=== PATIENT | male | born 2000 | race Caucasian/White ===

== ENCOUNTER 2021-10-25 17:16 | Emergency (ER) | payer SELFPAY ==
[2021-10-25 17:22] VITALS: BP 156/109; PULSE 111; RESP 24; TEMP 38.3; O2SAT 98
--- NOTE | 2021-10-25 18:03 | ED_ITS ---
HPI - Abdominal Pain General: Chief Complaint: Abdominal Pain Stated Complaint: n/v Time Seen by Provider: 10/25/21 17:55 History of Present Illness: 21-year-old male comes in today with complaints of nausea and vomiting starting this morning at about 230. Patient reports that when he woke up he felt a little bit better and had taken his significant other to the dentist. Follow-up with dentist patient had a bout of diarrhea, and then on the way home he had 17 episodes of emesis. Patient appears unwell but not toxic. Patient reports generalized body aches. Associated Symptoms: Reports diarrhea, fever(s), nausea and vomiting Review of Systems General: Reports: 10 or more systems reviewed and unremarkable except in HPI and below Const: Reports: fever(s) Card: Denies: chest pain Resp: Denies: dyspnea GI: Reports: nausea, vomiting and diarrhea : Denies: difficulty urinating Skin/Breast: Reports: rash PFSH ED PFSH: Family History (Updated 11/27/20 @ 08:25 by Ruddy Salcedo LPN) Other Diabetes Hypertension Social History Smoking and tobacco status: never smoked Quit status (tobacco): has quit using tobacco Year quit tobacco: 2011 Second hand smoke exposure: No Physical Exam Const: COMMON NORMALS: alert HENMT: COMMON NORMALS: Normal external nose present FACE & SINUS: erythema (Petechial rash) NOSE: Normal external nose present MOUTH: Normal oral and palatal mucosa present Neck/C-Spine: COMMON NORMALS: full ROM Resp: COMMON NORMALS: normal respiratory effort and clear to auscultation bilaterally AUSCULTATION: clear to auscultation bilaterally Cardio: COMMON NORMALS: regular rate and regular rhythm RATE: regular rate RHYTHM: regular rhythm GI: COMMON NORMALS: Soft to palpation AUSCULTATION: Yes normoactive bowel sounds PALPATION: Yes Soft to palpation, Yes Tenderness to palpation present (GI) (Mild generalized), No Guarding due to palpation present (GI) and No Rebound tenderness present Extremity: COMMON NORMALS: normal to inspection and full ROM Neuro: SENSORIUM/ORIENTATION: Yes alert Skin: RASHES: rashes noted (Petechial rash to the face) Course ED course: 2003, patient reports feeling better. Patient is reporting some restlessness. Abdomen is soft and nontender. Skin is warm and dry. Reviewed exam with patient with recommendations for treatment and follow-up. Patient reported understanding and agreed to plan. Vital Signs: Vital signs: Vital Signs Temperature 102.2 F H 10/25/21 19:18 Pulse Rate 111 H 10/25/21 19:18 Respiratory Rate 22 H 10/25/21 19:18 Blood Pressure 123/64 10/25/21 19:18 Pulse Oximetry 97 10/25/21 19:18 MDM - Abdominal Pain Medical Decision Making Patient comes in today with complaints of nausea and vomiting since 230 this morning. Patient also reports episodes of diarrhea x2. Patient reports 17 episodes of emesis. On exam patient does have a petechial rash to the face. Abdomen soft with some hyperactive bowel sounds. Skin is warm and dry. Vital signs are normal except for some elevation in temperature and pulse. Differential diagnosis includes gastroenteritis, substance abuse, heat exhaustion. Laboratory values noted normal white count of 8.4, anion gap was 21, creatinine was 1.1, sodium potassium was normal range. Urinalysis was unremarkable. Believe the patient probably has a bout of gastroenteritis due to his fever and episodes of nausea vomiting diarrhea. Patient was given 2 L IV fluids along with ondansetron and ketorolac with improvement of symptoms. Patient reported understanding of care plan need for follow-up or return to the ER. Lab Data : 10/25/21 18:30 10/25/21 18:30 Labs/Radiology: Laboratory Results WBC 8.4 10^3/uL (4.0-10.0) 10/25/21 18:30 RBC 5.33 10^6/uL (4.1-5.3) H 10/25/21 18:30 Hgb 14.9 g/dL (11.7-16.6) 10/25/21 18:30 Hct 43.0 % (42.0-52.0) 10/25/21 18:30 MCV 80.7 fl (80-94) 10/25/21 18:30 MCH 28.0 pg (28.0-34.0) 10/25/21 18: MCHC 34.7 g/dL (30.0-36.0) 10/25/21 18:30 RDW 12.5 % (12.1-15.1) 10/25/21 18:30 Plt Count 314 10^3/cmm (130-400) 10/25/21 18:30 MPV 9.7 fL (7.4-10.4) 10/25/21 18:30 Neut % (Auto) 76.3 % 10/25/21 18:30 Lymph % (Auto) 5.6 % 10/25/21 18:30 [place] % (Auto) 16.0 % 10/25/21 18: Eos % (Auto) 0.4 % 10/25/21 18: Baso % (Auto) 0.5 % 10/25/21 18:30 Neut # (Auto) 6.39 10^3/uL (1.8-7.7) 10/25/21 18: Lymph # (Auto) 0.5 10^3/uL (0.8-4.8) L 10/25/21 18:30 [place] # (Auto) 1.3 10^3/uL (0.2-0.9) H 10/25/21 18: Eos # (Auto) 0.0 10^3/uL (0.0-0.8) 10/25/21 18:30 Baso # (Auto) 0.0 10^3/uL (0.0-0.1) 10/25/21 18: Nucleated RBC % (auto) 0 % 10/25/21 18: Nucleated RBCs # 0.0 /100WBC 10/25/21 18:30 Sodium 138 mmol/L (136-145) 10/25/21 18:30 Potassium 3.5 mmol/L (3.5-5.1) 10/25/21 18: Chloride 99 mmol/L (98-107) 10/25/21 18:30 Carbon Dioxide 21 mmol/L (22-29) L 10/25/21 18:30 Anion Gap 21.5 (5-19) H 10/25/21 18:30 BUN 10 mg/dL (6-20) 10/25/21 18: Creatinine 1.1 mg/dL (0.7-1.2) 10/25/21 18:30 GFR Calculation 83.0 mL/min (90-130) L 10/25/21 18: Glucose 117 mg/dL (65-115) H 10/25/21 18:30 Calculated Osmolality 286 mOsm/kg (285-295) 10/25/21 18:30 Calcium 9.9 mg/dL (8.5-10.5) 10/25/21 18:30 Total Bilirubin 0.5 mg/dL (0.15-1.2) 10/25/21 18:30 AST 22 U/L (0-40) 10/25/21 18:30 ALT 34 U/L (0-41) 10/25/21 18:30 Alkaline Phosphatase 68 IU/L (40-130) 10/25/21 18:30 Total Protein 8.0 g/dL (6.6-8.7) 10/25/21 18:30 Albumin 5.2 g/dL (3.5-5.2) 10/25/21 18:30 Globulin 2.8 g/dL (1.3-4.6) 10/25/21 18:30 Lipase 24 U/L (13-60) 10/25/21 18:30 Urine Color Yellow (Yellow) 10/25/21 19:10 Urine Appearance Clear (CLEAR) 10/25/21 19:10 Urine pH 7 (5-7) 10/25/21 19:10 Ur Specific [place] 1.005 (1.005-1.030) 10/25/21 19:10 Urine Protein Neg (Negative) 10/25/21 19:10 Urine Glucose (UA) Norm (Normal) 10/25/21 19:10 Urine Ketones Negative (Negative) 10/25/21 19:10 Urine Blood Neg (Negative) 10/25/21 19:10 Urine Nitrate Negative (Negative) 10/25/21 19:10 Urine Bilirubin Neg (Negative) 10/25/21 19:10 Urine Urobilinogen 1 mg/dL (Negative) H 10/25/21 19:10 Ur Leukocyte Esterase Negative (Negative) 10/25/21 19:10 Discharge Plan Discharge Clinical Impression: Gastroenteritis Condition: Stable Prescriptions: New ondansetron 4 mg tablet,disintegrating 4 mg PO Q8H PRN (Reason: nausea and vomiting) Qty: 7 0RF No Action cephalexin 500 mg capsule 500 mg PO QID 7 Days Qty: 28 0RF paroxetine HCl [Paxil] 20 mg tablet 20 mg PO DAILY Qty: 30 0RF paroxetine HCl [Paxil] 40 mg tablet 40 mg PO DAILY Qty: 30 1RF Rx Instructions: Start after 1 month on 20 mg. Discharge Diet: Advance as tolerated Patient Instructions: Gastroenteritis (ED) Activity Restrictions/Additional Instructions: Home and rest. Clear liquid diet for the next 24 hours. After that increase diet slowly to a bland diet with foods such as bananas, rice, apples, toast, and boiled chicken. Avoid extremely acidic foods or spicy foods. Use a ondansetron as needed for nausea or vomiting. Use acetaminophen or Tylenol for fever. Return to ER for worsening abdominal pain with radiation to the right lower quadrant, or blood in vomit or stool. Follow-up with primary care as needed. Stand Alone Forms: Work/School Release Coding Level of Care Code ED Marketing Administrator for [employer] Fwd Exam Comprehensive
[2021-10-25] MEDS: sodium chloride 0.9% 1,000 ML 999 ML IV ×2 (18:35→19:49)
[2021-10-25] MEDS: diphenhydrAMINE 50 mg/mL SDV 1mL 25 MG IVP (18:36)
[2021-10-25 18:38] LABS: Basophils % 0.5 %; Eosinophils % 0.4 %; Hemoglobin 14.9 g/dL (11.7-16.6); Lymphocytes # 0.5 10^3/uL (0.8-4.8); Lymphocytes % 5.6 %; Mean Corpuscular HGB Conc 34.7 g/dL (30.0-36.0); Mean Corpuscular Volume 80.7 fl (80-94); Mean Platelet Volume 9.7 fL (7.4-10.4); Monocytes # 1.3 10^3/uL (0.2-0.9); Neutrophils # 6.39 10^3/uL (1.8-7.7); Neutrophils % 76.3 %; Nucleated Red Blood Cells % 0 %; Platelet Count 314 10^3/cmm (130-400); Red Blood Count 5.33 10^6/uL (4.1-5.3); Red Cell Distribution Width 12.5 % (12.1-15.1); White Blood Count 8.4 10^3/uL (4.0-10.0)
[2021-10-25] MEDS: ketorolac 30 mg/mL INJ 15 MG IVP ×2 (18:38→19:51)
[2021-10-25 18:57] LABS: Alanine Aminotransferase 34 U/L (0-41); Albumin Level 5.2 g/dL (3.5-5.2); Alkaline Phosphatase 68 IU/L (40-130); Anion Gap 21.5 (5-19); Aspartate Amino Transferase 22 U/L (0-40); Blood Urea Nitrogen 10 mg/dL (6-20); Calcium 9.9 mg/dL (8.5-10.5); Carbon Dioxide 21 mmol/L (22-29); Chloride 99 mmol/L (98-107); Creatinine Clr Calc Pharmacy 111.5536; Globulin 2.8 g/dL (1.3-4.6); Glucose 117 mg/dL (65-115); Lipase 24 U/L (13-60); Osmolality Calculated 286 mOsm/kg (285-295); Potassium 3.5 mmol/L (3.5-5.1); Sodium 138 mmol/L (136-145); Total Bilirubin 0.5 mg/dL (0.15-1.2)
[2021-10-25 19:18] VITALS: BP 123/64; PULSE 111; RESP 22; TEMP 39; O2SAT 97
[2021-10-25 19:33] LABS: Add Urine Microscopic? NO; Charge for UA Resulting for Rev
[2021-10-25] MEDS: metoclopramide 5 mg/mL SDV 2 mL 10 MG IVP (19:49)
[2021-10-25 19:50] LABS: Bilirubin Urine Neg (Negative); Blood Urine Neg (Negative); Glucose Urine UA Norm (Normal); Ketones Urine Negative (Negative); Leukocyte Esterase Urine Negative (Negative); Nitrate Urine Negative (Negative); Protein Urine Neg (Negative); Specific Gravity, Urine 1.005 (1.005-1.030); Urine Appearance Clear (CLEAR); Urine Color Yellow (Yellow); Urobilinogen Urine 1 mg/dL (Negative); pH Urine 7 (5-7)
[2021-10-25] MEDS: acetaminophen 325 mg Tablet 650 MG PO (19:50)
[2021-10-25] MEDS: LORazepam 0.5 mg Tablet PO (20:20)
[2021-10-25 20:34] VITALS: BP 148/88; PULSE 112; RESP 18; TEMP 37.9; O2SAT 99
[2021-10-25 21:03] VITALS: BP 120/60; PULSE 117; RESP 20; TEMP 37.7; O2SAT 97
[2021-10-25 21:11] VITALS: BP 120/60; PULSE 117; RESP 20; TEMP 37.7; O2SAT 97
[2021-10-25 21:20] LABS: Adenovirus Not Detected (NOT DETECT); Chlamydia Pneumoniae Not Detected (NOT DETECT); Coronavirus 229E,HKU1,NL63,OC4 Not Detected (NOT DETECT); Human Metapneumovirus Not Detected (NOT DETECT); Human Rhinovirus/Enterovirus Not Detected (NOT DETECT); Influenza A Not Detected (NOT DETECT); Influenza A H1 Not Detected (NOT DETECT); Influenza A H1-2009 Not Detected (NOT DETECT); Influenza A H3 Not Detected (NOT DETECT); Influenza B Not Detected (NOT DETECT); Mycoplasma Pneumoniae Not Detected (NOT DETECT); Parainfluenza Virus Type 1 Not Detected (NOT DETECT); Parainfluenza Virus Type 2 Not Detected (NOT DETECT); Parainfluenza Virus Type 3 Not Detected (NOT DETECT); Parainfluenza Virus Type 4 Not Detected (NOT DETECT); Respiratory Syncytial Virus A Not Detected (NOT DETECT); Respiratory Syncytial Virus B Not Detected (NOT DETECT); SARS-COV-2 Detected (NOT DETECT)
--- NOTE | 2021-10-26 09:35 | PC.NURSE ---
PC TO PT INFORMED HIM OF POSITIVE COVID TEST. HE VERBALIZED UNDERSTANDING AND THE NEED TO QUARANTINE FOR AT LEAST 5 DAYS.
== END 2021-10-25 21:14 | disposition home or self-care (01) ==
PROVIDERS: Emergency Provider Nurse Practitioner Family
DX: K52.9 Noninfective gastroenteritis and colitis, unspecified (principal); U07.1 COVID-19; Z87.891 Personal history of nicotine dependence
CPT/HCPCS: 80053; 81003; 83690; 85025; 87635; 96361; 96374; 96375; 96376; 99284; 99291; 99292; J1200; J1885; J2765; J7030